=== PATIENT | female | born 1970 | race Caucasian/White ===

== ENCOUNTER 2019-03-21 16:24 | Emergency (ER) | payer BC ==
[2019-03-21 16:28] VITALS: BP 136/81; PULSE 73; TEMP 98; BMI 27.9
[2019-03-21] MEDS ORDERED: CYCLOBENZAPRINE HCL 10 MG TABLET (FP) PO ONE (16:47)
[2019-03-21] MEDS ORDERED: KETOROLAC TROMETHAMINE 60 MG/2 ML VIAL IM ONE (16:47)
[2019-03-21] MEDS ORDERED: CYCLOBENZAPRINE HCL 10 MG TABLET (FP) ONE (16:49)
[2019-03-21] MEDS ORDERED: KETOROLAC TROMETHAMINE 60 MG/2 ML VIAL ONE (16:49)
--- NOTE | 2019-03-21 16:54 | PDOC ---
History of Present Illness - General Chief Complaint: Pain Stated Complaint: PAIN Time Seen by Provider: 03/21/19 16:35 History Source: Patient - History of Present Illness Occurred: reports: this morning Past History - Past Medical History Allergies/Adverse Reactions: Allergies Allergy/AdvReac Type Severity Reaction Status Date / Time No Known Allergies Allergy Verified 03/21/19 16:28 Home Medications: Ambulatory Orders Cyclobenzaprine HCl [Flexeril 10 mg] 10 mg PO HS #9 tablet 03/21/19 Naproxen 500 mg PO BID #20 tablet 03/21/19 COPD: No Hypercholesterolemia: Yes (non medicated) - Psycho Social/Smoking Cessation Hx Smoking History: Never smoked Review of Systems - Review of Systems Constitutional: No: Chills, Fever ABD/GI: No: Constipated, Diarrhea, Nausea, Vomiting, Abdominal cramping : No: Burning, Dysuria, Flank Pain, Hematuria Musculoskeletal: Yes: Back Pain Neurological: No: Numbness, Tingling, Weakness *Physical Exam - Vital Signs Last Vital Signs Temp Pulse Resp BP Pulse Ox 98 F 73 18 136/81 99 03/21/19 16:25 03/21/19 16:25 03/21/19 16:25 03/21/19 16:25 03/21/19 16:25 - Physical Exam General Appearance: Yes: Appropriately Dressed, Mild Distress HEENT: positive: Normal Voice Neck: positive: Supple Respiratory/Chest: negative: Respiratory Distress Gastrointestinal/Abdominal: positive: Soft. negative: Tender, Distended, Guarding, Rebound Musculoskeletal: positive: Normal Inspection. negative: CVA Tenderness, Vertebral Tenderness Integumentary: positive: Dry, Warm Neurologic: positive: Fully Oriented, Alert, Normal Mood/Affect, Motor Strength 5/5 Medical Decision Making - Medical Decision Making 03/21/19 16:56 48-year-old female, denies any past medical history, here with lower back pain that started while in bed this morning. Pain located to right lower back, unable to describe, 8 out of 10 and does not radiate. States pain worse with certain movements. Took motrin with no relief. No trauma. No sensory changes, lower extremity weakness, saddle anesthesia, bowel or bladder incontinence, dysuria, hematuria, nausea, vomiting fever or chills. No history of similar pain. No history of kidney stones seee zee M/l MSK LBP No red flags at this time Dc w/ pain control PMD f/u as needed Discharge - Discharge Information Problems reviewed: Yes Clinical Impression/Diagnosis: Low back pain Qualifiers: Chronicity: acute Back pain laterality: right Sciatica presence: without sciatica Qualified Code(s): M54.5 - Low back pain - Additional Discharge Information Prescriptions: Cyclobenzaprine HCl [Flexeril 10 mg] 10 mg PO HS #9 tablet Naproxen 500 mg PO BID #20 tablet - Follow up/Referral Referrals: Jennie Friend MD [Primary Care Provider] - - Patient Discharge Instructions Patient Printed Discharge Instructions: Low Back Pain Additional Instructions: Take medication as directed and if pain persist, please follow-up with your doctor - Post Discharge Activity Work/Back to School Note: Back to Work
== END 2019-03-21 16:57 | disposition home or self-care (01) ==
LOC: JERFT 16:24
PROC: 3E0233Z Introduction of Anti-inflammatory into Muscle, Percutaneous Approach (ICD-10-PCS; principal; 2019-03-21)
DX: M54.5 Low back pain (principal); E78.00 Pure hypercholesterolemia, unspecified
CPT/HCPCS: 99281-25

== ENCOUNTER 2022-08-04 06:26 | Emergency (ER) | payer BC ==
[2022-08-04 06:40] VITALS: RESP 20; TEMP 98.7; BMI 28.8
[2022-08-04] MEDS ORDERED: IBUPROFEN 400 MG TABLET (FP) PO ONE ×2 (07:59→08:14)
[2022-08-04 08:34] VITALS: BP 129/71; PULSE 97
== END 2022-08-04 09:10 | disposition home or self-care (01) ==
LOC: JERFT 06:26 → JER 06:26 → JERFT 09:10
DX: J10.1 Influenza due to other identified influenza virus with other respiratory manifestations (principal); Z20.822 Contact with and (suspected) exposure to COVID-19
CPT/HCPCS: 0241U-QW; 87651; 99283-25

== ENCOUNTER 2022-10-22 13:29 | Observation (INO) | payer BC ==
[2022-10-22] MEDS ORDERED: ACETAMINOPHEN 1000 MG/100 ML BAG IVPB ONE (14:03)
[2022-10-22] MEDS ORDERED: ACETAMINOPHEN INJECTION 100 ML IVPB ONE (14:12)
[2022-10-22 14:37] LABS: BASO % 0.6 % (0-2.0); EOS % 1.7 % (0-4.5); HEMATOCRIT 42.6 % (32.4-45.2); HEMOGLOBIN 14.7 GM/dL (10.7-15.3); LYMPH % 29.3 % (8-40); MCH 31.8 pg (25.7-33.7); MCHC 34.6 g/dl (32.0-36.0); MEAN CELL VOLUME 91.7 fl (80-96); MEAN PLT VOLUME 8.3 fl (7.5-11.1); NEUT % 59.4 % (42.8-82.8); PLATELET COUNT 207 10^3/uL (134-434); RBC 4.64 M/mm3 (3.60-5.2); RDW 13.4 % (11.6-15.6); WHITE BLOOD COUNT 6.7 K/mm3 (4.0-10.0)
[2022-10-22 14:50] LABS: POTASSIUM 3.7 mmol/L (3.5-5.1)
[2022-10-22 14:52] LABS: CALCIUM 8.8 mg/dL (8.5-10.1)
[2022-10-22 14:53] LABS: ALBUMIN 3.6 g/dl (3.4-5.0)
[2022-10-22 14:56] LABS: CREATININE 0.7 mg/dL (0.55-1.3)
[2022-10-22 14:58] LABS: TOT PROT 6.9 g/dl (6.4-8.2)
[2022-10-22 15:00] LABS: BILIRUBIN,TOTAL 0.6 mg/dL (0.2-1)
[2022-10-22 16:40] LABS: INR 1.06 (0.83-1.09); PROTHROMBIN TIME (PATIENT) 12.3 SEC (9.7-13.0)
[2022-10-22 16:43] LABS: ACTIVATED PTT 30.9 SECONDS (25.2-36.5)
[2022-10-22 17:47] VITALS: BMI 28.3
[2022-10-23 08:36] LABS: BASO % 0.8 % (0-2.0); HEMATOCRIT 44.4 % (32.4-45.2); LYMPH % 39.9 % (8-40); MCH 31.7 pg (25.7-33.7); MCHC 33.8 g/dl (32.0-36.0); MEAN CELL VOLUME 93.9 fl (80-96); MONO % 7.6 % (3.8-10.2); NEUT % 48.7 % (42.8-82.8); PLATELET COUNT 212 10^3/uL (134-434); RBC 4.73 M/mm3 (3.60-5.2); RDW 13.3 % (11.6-15.6); WHITE BLOOD COUNT 7.7 K/mm3 (4.0-10.0)
[2022-10-23 08:51] LABS: BLOOD UREA NITROGEN 11.4 mg/dL (7-18); CALCIUM 8.7 mg/dL (8.5-10.1)
[2022-10-23 08:52] LABS: ALBUMIN 3.6 g/dl (3.4-5.0); MAGNESIUM 2.1 mg/dL (1.8-2.4)
[2022-10-23 08:54] LABS: CREATININE 0.7 mg/dL (0.55-1.3); PHOSPHOROUS 3.6 mg/dL (2.5-4.9)
[2022-10-23 08:55] LABS: BILIRUBIN,TOTAL 0.4 mg/dL (0.2-1); TOT PROT 6.8 g/dl (6.4-8.2)
[2022-10-23 10:32] VITALS: RESP 18
[2022-10-23 13:59] VITALS: BP 134/78; PULSE 74; TEMP 98.1
== END 2022-10-23 15:09 | disposition home or self-care (01) ==
LOC: JER 13:29 → JERBED 15:16 → J4W 20:06
PROVIDERS: ADMIT Internal Medicine; ATTEND Internal Medicine
PROC: 3E033NZ Introduction of Analgesics, Hypnotics, Sedatives into Peripheral Vein, Percutaneous Approach (ICD-10-PCS; principal; 2022-10-22)
DX: R07.89 Other chest pain (principal); E78.5 Hyperlipidemia, unspecified; K76.0 Fatty (change of) liver, not elsewhere classified; Z86.16 Personal history of COVID-19
CPT/HCPCS: 36415; 71045-TC-FY; 71275-TC; 74174-TC; 75605-TC-FY; 80053; 80061; 83036; 83735; 84100; 84439; 84443; 84484; 85025; 85379; 85610; 85730; 86850; 86900; 86901; 87635; 93005; 93010; 93017; 93018; 93306-TC; 93971-TC; 99285-25; G0378; Q9967

== ENCOUNTER 2023-01-23 10:39 | Emergency (ER) | payer BC ==
[2023-01-23 10:48] VITALS: BP 120/80; PULSE 74; RESP 16; TEMP 98.2; BMI 26.6
== END 2023-01-23 11:59 | disposition home or self-care (01) ==
LOC: JERFT 10:39
DX: H57.11 Ocular pain, right eye (principal); H00.022 Hordeolum internum right lower eyelid; H66.003 Acute suppurative otitis media without spontaneous rupture of ear drum, bilateral
CPT/HCPCS: 99283-25

== ENCOUNTER 2023-09-14 10:49 | Emergency (ER) | payer BC ==
[2023-09-14 10:56] VITALS: BP 123/81; PULSE 72; RESP 20; TEMP 98; BMI 27.9
[2023-09-14] MEDS ORDERED: LORATADINE 10 MG TABLET ONE (11:18)
[2023-09-14] MEDS ORDERED: IBUPROFEN 600 MG TABLET (FP) PO ONE (11:18)
[2023-09-14] MEDS: LORATADINE 10 MG TABLET PO ONE (11:19)
[2023-09-14] MEDS: IBUPROFEN 600 MG TABLET (FP) PO ONE (11:19)
[2023-09-14] MEDS: NEOMYCIN/POLYMYXN/HC OTIC SUSPENSION 10 ML BOTTLE AS ONE (11:38)
== END 2023-09-14 12:26 | disposition home or self-care (01) ==
LOC: JERFT 10:49
DX: H60.92 Unspecified otitis externa, left ear (principal); H92.02 Otalgia, left ear
CPT/HCPCS: 99283-25

== ENCOUNTER 2024-02-03 22:09 | Emergency (ER) | payer BC ==
[2024-02-03 22:14] VITALS: BP 147/100; PULSE 88; RESP 18; TEMP 98.4; BMI 29.6
[2024-02-03 23:31] LABS: BASO % 0.5 % (0-2.0); HEMOGLOBIN 14.8 GM/dL (10.7-15.3); LYMPH % 40.3 % (8-40); MCHC 34.5 g/dl (32.0-36.0); MEAN CELL VOLUME 92.9 fl (80-96); MEAN PLT VOLUME 7.9 fl (7.5-11.1); MONO % 6.7 % (3.8-10.2); NEUT % 49.5 % (42.8-82.8); PLATELET COUNT 216 10^3/uL (134-434); RBC 4.62 M/mm3 (3.60-5.2); RDW 12.9 % (11.6-15.6); WHITE BLOOD COUNT 8.7 K/mm3 (4.0-10.0)
[2024-02-03 23:54] LABS: POTASSIUM 4.1 mmol/L (3.5-5.1)
[2024-02-03 23:56] LABS: CALCIUM 9.5 mg/dL (8.5-10.1)
[2024-02-03 23:57] LABS: BLOOD UREA NITROGEN 15.7 mg/dL (7-18)
[2024-02-04] LABS: CREATININE 0.8 mg/dL (0.55-1.3)
[2024-02-04 00:02] LABS: BILIRUBIN,TOTAL 0.3 mg/dL (0.2-1); TOT PROT 7.1 g/dl (6.4-8.2)
== END 2024-02-04 01:45 | disposition home or self-care (01) ==
LOC: JER 22:09
DX: R07.89 Other chest pain (principal); R51.9 Headache, unspecified; M79.602 Pain in left arm; R42 Dizziness and giddiness; R11.0 Nausea; R20.0 Anesthesia of skin; R20.2 Paresthesia of skin
CPT/HCPCS: 0241U-QW; 36415; 71046-TC-FY; 80053; 83735; 84484; 85025; 93005; 93010; 99285-25

== ENCOUNTER 2025-01-07 16:32 | Emergency (ER) | payer OTHER, BC ==
[2025-01-07 16:38] VITALS: BP 110/71; PULSE 81; RESP 20; TEMP 97.7; BMI 27.1
== END 2025-01-07 18:48 | disposition home or self-care (01) ==
LOC: JERFT 16:32
PROC: 0H9QXZZ Drainage of Finger Nail, External Approach (ICD-10-PCS; principal; 2025-01-07)
DX: S62.661A Nondisplaced fracture of distal phalanx of left index finger, initial encounter for closed fracture (principal); W23.2XXA Caught, crushed, jammed or pinched between a moving and stationary object, initial encounter; Y99.0 Civilian activity done for income or pay
CPT/HCPCS: 73140-TC-LT-FY; 99283-25